=== PATIENT | female | born 1995 | race Two or more races ===

== ENCOUNTER 2018-01-30 15:03 | Observation (INO) | payer OTHER ==
[~2018-01-30] VITALS: Ht 160 cm; Wt 127.0 kg
[2018-01-30 16:31] LABS: Basophils # (auto) 0.1 uL; Basophils % (auto) 0.7 % (0.0-2.0); Eosinophils # (auto) 0.3 uL; Hematocrit 39.1 % (36.0-46.0); Hemoglobin 13.2 g/dL (12.2-16.2); Lymphocytes % (auto) 22.9 % (10.0-50.0); Mean Corpuscular Hemoglobin 28.8 pg (28.0-32.0); Mean Corpuscular Hgb Conc. 33.8 g/dL (32.0-36.0); Mean Corpuscular Volume 85.1 fL (80.0-100.0); Monocytes # (auto) 0.4 uL; Monocytes % (auto) 4.7 % (0.0-12.0); Neutrophils # (auto) 5.9 uL; Neutrophils % (auto) 68.7 % (37.0-80.0); Nucleated Red Blood Cells % 0.1 %; Platelet Count (auto) 289 10^3/uL (140-450); Red Cell Distribution Width 13.2 % (11.8-14.3); White Blood Cell 8.6 10^3/uL (4.4-10.8)
[2018-01-30 16:40] LABS: Alanine Aminotransferase 30 U/L (13-56); Albumin 3.4 g/dL (3.4-5.0); Alkaline Phosphatase 122 U/L (45-117); Anion Gap 7 (5-15); Aspartate Aminotransferase 17 U/L (15-37); Bilirubin, Total 0.3 mg/dL (0.2-1.0); Blood Urea Nitrogen 11 mg/dL (7-18); Calcium 8.3 mg/dL (8.5-10.1); Carbon Dioxide 25 mmol/L (21-32); Chloride 109 mmol/L (98-107); GFR African American 88 mL/min; GFR Non-African American 72 mL/min; Glucose 110 mg/dL (74-106); Potassium 3.8 mmol/L (3.5-5.1); Sodium 141 mmol/L (136-145); Total Protein 7.2 g/dL (6.4-8.2)
[2018-01-30 16:58] LABS: Urine Bacteria NONE SEEN /hpf (None Seen); Urine Blood Negative /uL (Negative); Urine Mucus FEW (None Seen); Urine Specific Gravity 1.026 (1.001-1.035); Urine WBC 3 /hpf (0 - 5)
[2018-01-30 17:00] LABS: Alcohol, Urine < 3.0 mg/dL (0-5); Amphetamine Screen, Urine NEGATIVE (NEGATIVE); Barbiturate Scree,Urine NEGATIVE (NEGATIVE); Benzodiazephine Screen, Urine NEGATIVE (NEGATIVE); Cannabinoid Screen, Urine NEGATIVE (NEGATIVE); Cocaine Screen, Urine NEGATIVE (NEGATIVE); Opiate Scree,Urine NEGATIVE (NEGATIVE); Phencyclidine Screen, Urine NEGATIVE (NEGATIVE)
[2018-01-30] MEDS ORDERED: ASPirin 81 mg TAB PO ONE (18:00)
[2018-01-30 18:35] LABS: INR 0.96 (0.9-1.15); Partial Thromboplastin Time 29.1 sec (23.78-33.04); Prothrombin Time 10.3 sec (9.27-12.13)
[2018-01-30 19:00] VITALS: BP 111/63
== END 2018-01-30 20:37 | disposition home or self-care (01) | DRG 203 ==
LOC: ER 15:05 → OVERFLOW 15:06 → ER 20:37
PROVIDERS: ADMIT Family Medicine; ATTEND Family Medicine
DX: R07.89 Other chest pain (principal); F41.9 Anxiety disorder, unspecified; K29.70 Gastritis, unspecified, without bleeding
CPT/HCPCS: 36415; 71046; 80053; 80307; 81001; 81025; 84443; 84484; 85025; 85379; 85610; 85730; 93005; G0378

== ENCOUNTER 2019-06-07 23:17 | Emergency (ER) | payer MEDICAID, OTHER ==
[~2019-06-07] VITALS: Ht 160 cm; Wt 132.9 kg
[2019-06-08 00:59] LABS: Basophils # (auto) 0.1 uL; Basophils % (auto) 0.5 % (0.0-2.0); Eosinophils # (auto) 0.4 uL; Eosinophils % (auto) 4.1 % (0.0-7.0); Hematocrit 39.7 % (36.0-46.0); Hemoglobin 13.9 g/dL (12.2-16.2); Lymphocytes # (auto) 3.2 uL; Lymphocytes % (auto) 29.1 % (10.0-50.0); Mean Corpuscular Hgb Conc. 35.1 g/dL (32.0-36.0); Mean Corpuscular Volume 85.6 fL (80.0-100.0); Monocytes # (auto) 0.5 uL; Neutrophils # (auto) 6.7 uL; Neutrophils % (auto) 61.3 % (37.0-80.0); Nucleated Red Blood Cells % 0.1 %; Platelet Count (auto) 293 10^3/uL (140-450); Red Blood Cells 4.65 10^6/uL (4.0-5.20); White Blood Cell 10.9 10^3/uL (4.4-10.8)
[2019-06-08 01:18] LABS: INR 1.03 (0.9-1.15); Partial Thromboplastin Time 29.7 sec (23.64-32.05)
[2019-06-08 01:30] LABS: Calcium 8.3 mg/dL (8.5-10.1); Chloride 108 mmol/L (98-107); Potassium 3.7 mmol/L (3.5-5.1); Sodium 138 mmol/L (136-145)
[2019-06-08 01:40] LABS: Alanine Aminotransferase 23 U/L (13-56); Albumin 3.4 g/dL (3.4-5.0); Alkaline Phosphatase 119 U/L (45-117); Anion Gap 6 (5-15); Aspartate Aminotransferase 13 U/L (15-37); BUN/Creatinine Ratio 9.6; Bilirubin, Total 0.2 mg/dL (0.2-1.0); Blood Urea Nitrogen 12 mg/dL (7-18); Carbon Dioxide 24 mmol/L (21-32); GFR African American 67 mL/min; GFR Non-African American 55 mL/min; Glucose 86 mg/dL (74-106); Magnesium 1.7 mg/dL (1.6-2.6); Total Protein 7.6 g/dL (6.4-8.2)
[2019-06-08 01:49] LABS: Urine Bacteria FEW /hpf (None Seen); Urine Blood Negative /uL (Negative); Urine Specific Gravity 1.018 (1.001-1.035); Urine WBC 26 /hpf (0 - 5)
[2019-06-08] MEDS ORDERED: cefTRIAXone W LIDOCAINE 1 GM IM IM ONE (07:30)
[2019-06-08] MEDS ORDERED: cefTRIAXone SOD 1,000 MG VL ONE (07:38)
[2019-06-08 08:21] VITALS: BP 132/76
== END 2019-06-08 08:23 | disposition home or self-care (01) ==
LOC: ER 23:17
DX: J40 Bronchitis, not specified as acute or chronic (principal); N39.0 Urinary tract infection, site not specified; D72.829 Elevated white blood cell count, unspecified
CPT/HCPCS: 36415; 80053; 81001; 81025; 83735; 83880; 84484; 85025; 85610; 85730; 93005; 96372; 99284; J0696

== ENCOUNTER 2020-04-13 20:35 | Inpatient (IN) | payer MEDICAID ==
[~2020-04-13] VITALS: Ht 160 cm; Wt 131.0 kg
[2020-04-13 22:42] LABS: Basophils # (auto) 0.1 10 ^3/uL (0-0.2); Basophils % (auto) 0.4 % (0.0-2.0); Eosinophils # (auto) 0.2 10 ^3/uL (0-0.8); Eosinophils % (auto) 1.1 % (0.0-7.0); Hematocrit 39.6 % (36.0-46.0); Hemoglobin 13.3 g/dL (12.2-16.2); Lymphocytes # (auto) 2.6 10 ^3/uL (0.4-5.4); Mean Corpuscular Hemoglobin 29.3 pg (28.0-32.0); Mean Corpuscular Hgb Conc. 33.5 g/dL (32.0-36.0); Mean Corpuscular Volume 87.4 fL (80.0-100.0); Monocytes # (auto) 0.6 10 ^3/uL (0-1.3); Monocytes % (auto) 3.8 % (0.0-12.0); Neutrophils # (auto) 11.9 10 ^3/uL (1.6-8.6); Neutrophils % (auto) 77.7 % (37.0-80.0); Nucleated Red Blood Cells % 0.1 %; Platelet Count (auto) 290 10^3/uL (140-450); Red Blood Cells 4.54 10^6/uL (4.0-5.20); Red Cell Distribution Width 13.4 % (11.8-14.3); White Blood Cell 15.3 10^3/uL (4.4-10.8)
[2020-04-13 22:46] LABS: Urine Bacteria FEW /hpf (None Seen); Urine Blood 2+ /uL (Negative); Urine Specific Gravity 1.013 (1.001-1.035); Urine WBC 4 /hpf (0 - 5)
[2020-04-13 23:07] LABS: Albumin 3.8 g/dL (3.4-5.0); BUN/Creatinine Ratio 7.7; Calcium 9.2 mg/dL (8.5-10.1); Potassium 4.5 mmol/L (3.5-5.1)
[2020-04-13 23:10] LABS: Bilirubin, Total 0.9 mg/dL (0.2-1.0); Total Protein 7.6 g/dL (6.4-8.2)
[2020-04-14] MEDS ORDERED: SODIUM CHLORIDE 0.9% 1,000 ML IV ONE (02:00)
[2020-04-14] MEDS ORDERED: ONDANSETRON HCL 4 MG/2 ML VIAL IV ONE (02:45)
[2020-04-14] MEDS ORDERED: MORPHINE SULF INJ 2 MG/ML SYRINGE 1ML IV ONE ×2 (02:45→05:15)
[2020-04-14] MEDS: LACTATED RINGER'S 1,000 ML IV SCH ×3 (02:49→18:08)
[2020-04-14 03:07] LABS: Hematocrit 42.7 % (36.0-46.0); Hemoglobin 14.3 g/dL (12.2-16.2)
[2020-04-14 07:34] LABS: INR 1.07 (0.9-1.15); Partial Thromboplastin Time 29.8 sec (23.0-31.2)
[2020-04-14] MEDS ORDERED: fentaNYL CITRATE 100 MCG/2 ML VL ONE (08:24)
[2020-04-14] MEDS ORDERED: MIDAZOLAM HCL 1MG/1ML-2 ML VIAL ONE (08:24)
[2020-04-14] MEDS ORDERED: MEPERIDINE HCL (50 MG/ML) 1 ML VIAL ONE (08:24)
[2020-04-14] MEDS ORDERED: GLYCOPYRROLATE 0.2 MG/ML 1ML VIAL ONE (08:25)
[2020-04-14] MEDS ORDERED: SODIUM CHLORIDE LOCK 10 ML ONE (08:25)
[2020-04-14] MEDS ORDERED: PROPOFOL 10 MG/ML 20 ML IV ONE (08:25)
[2020-04-14] MEDS ORDERED: NEOSTIGMINE 1 MG/ML INJ (10mg/10ML VIAL) ONE (08:25)
[2020-04-14] MEDS ORDERED: ROCURONIUM 10MG/ML 10ML VIAL IV ONE (08:25)
[2020-04-14] MEDS ORDERED: ONDANSETRON HCL 4 MG/2 ML VIAL ONE (08:25)
[2020-04-14] MEDS ORDERED: LIDOCAINE W/ EPINEPHRINE 1% 20ML VIAL ONE (08:29)
[2020-04-14] MEDS ORDERED: BUPIVACAINE 0.25% INJ 50ML VIAL ONE (08:29)
[2020-04-14] MEDS ORDERED: ceFAZolin 1GM/50ML 100 ML IV ONE (08:43)
[2020-04-14] MEDS ORDERED: fentaNYL CITRATE 5 ML ONE (08:51)
[2020-04-14] MEDS ORDERED: METOCLOPRAMIDE HCL 5MG/ml INJ 2ml VIAL IV PRN (09:00)
[2020-04-14] MEDS ORDERED: ACCU-CHEK COMFORT CURVE STRIP VI ONE (09:00)
[2020-04-14] MEDS ORDERED: HYDROmorphone HCL 2 MG/ML VL IV PRN (09:00)
[2020-04-14] MEDS ORDERED: MORPHINE SULFATE 4 MG/ML SYR/VIAL IV PRN (09:00)
[2020-04-14] MEDS ORDERED: ceFAZolin 1GM/50ML 50 ML IV ONE (10:30)
[2020-04-14] MEDS ORDERED: LACTATED RINGER'S 1,000 ML IV SCH (10:30)
[2020-04-14] MEDS: HYDROmorphone HCL 2 MG/ML VL IV PRN ×4 (12:00→18:27)
--- NOTE | 2020-04-14 15:23 | NUR ---
MS admit from PACU KIKA CRUZ admitted to tele/MS after SBAR received. Patient oriented to DEE martin RN, unit, room 207 and unit policies regarding patient care and visiting hours. Patient weighed by bed scale, placed on oxygen at 2L/ min via nasal cannula and encouraged to call if they need something, bed alarm on. All questions and concerns addressed, patient verbalized understanding.
[2020-04-14 15:43] VITALS: BP 136/77
[2020-04-14] MEDS ORDERED: METF-370 PO (15:57)
[2020-04-14] MEDS ORDERED: CHOL20002 PO (15:57)
[2020-04-14 16:44] VITALS: BP 136/77
--- NOTE | 2020-04-14 16:49 | NUR ---
REPORT GIVEN TO VIVIAN TORRES
[2020-04-14] MEDS: ONDANSETRON HCL 4 MG/2 ML VIAL IV PRN ×2 (18:27→22:12)
[2020-04-14 22:00] VITALS: BP 113/63
[2020-04-14] MEDS: KETOROLAC TROMETH 30 MG/ML 1ML VIAL IV PRN (22:12)
[2020-04-15] MEDS: HYDROmorphone HCL 2 MG/ML VL IV PRN (02:29)
[2020-04-15 05:14] VITALS: BP 117/54
[2020-04-15 05:30] LABS: Basophils # (auto) 0 10 ^3/uL (0-0.2); Basophils % (auto) 0.3 % (0.0-2.0); Eosinophils # (auto) 0.1 10 ^3/uL (0-0.8); Eosinophils % (auto) 0.9 % (0.0-7.0); Hematocrit 33.3 % (36.0-46.0); Hemoglobin 11.3 g/dL (12.2-16.2); Lymphocytes # (auto) 1.6 10 ^3/uL (0.4-5.4); Lymphocytes % (auto) 13.5 % (10.0-50.0); Mean Corpuscular Hemoglobin 29.9 pg (28.0-32.0); Mean Corpuscular Volume 87.8 fL (80.0-100.0); Monocytes # (auto) 0.6 10 ^3/uL (0-1.3); Neutrophils # (auto) 9.6 10 ^3/uL (1.6-8.6); Neutrophils % (auto) 80.3 % (37.0-80.0); Platelet Count (auto) 231 10^3/uL (140-450); Red Blood Cells 3.79 10^6/uL (4.0-5.20); Red Cell Distribution Width 13.5 % (11.8-14.3)
[2020-04-15] MEDS: LACTATED RINGER'S 1,000 ML IV SCH ×2 (06:24→10:55)
[2020-04-15] MEDS: KETOROLAC TROMETH 30 MG/ML 1ML VIAL IV PRN ×2 (08:34→23:22)
[2020-04-15 08:42] VITALS: BP 111/48
--- NOTE | 2020-04-15 11:09 | NUR ---
MACHADO CATHETER REMOVED
[2020-04-15] MEDS ORDERED: HYDROcodone-ACET 5/325MG TAB PO PRN (11:30)
[2020-04-15 12:52] VITALS: BP 126/67
[2020-04-15 17:00] VITALS: BP 116/64
[2020-04-15 20:00] VITALS: BP 112/84
[2020-04-15] MEDS: HYDROcodone-ACET 5/325MG TAB PO PRN (22:05)
[2020-04-16 05:00] VITALS: BP 135/68
[2020-04-16 09:00] VITALS: BP 151/76
[2020-04-16] MEDS: HYDROcodone-ACET 5/325MG TAB PO PRN (10:03)
--- NOTE | 2020-04-16 10:21 | NUR ---
DR WISEMAN ROUNDED, PT TO DISCHARGE HOME TODAY. PT C/O 01/30 ABD. PAIN. MEDICATED WITH NORCO ORDERED. AMBULATED TO BATHROOM, PRESENTLY SITTING UP IN CHAIR.
[2020-04-16] MEDS: ONDANSETRON HCL 4 MG/2 ML VIAL IV PRN (10:44)
--- NOTE | 2020-04-16 11:20 | NUR ---
PT STATED SHE HAD INTENSE ABDOMINAL PAIN AND NAUSEA. MEDICATED WITH NORCO AND ZOFRAN. NOTED PT TO BE SWEATING, CRYING WITH PAIN. BLOOD SUGAR 98. VSS. MONITORING CLOSELY. AT PRESENT, PT RESTING IN BED, STATES PAIN IS BETTER. CONTINUING TO MONITOR.
[2020-04-16 11:44] VITALS: BP 119/55
[2020-04-16 12:58] VITALS: BP 114/59
--- NOTE | 2020-04-16 13:17 | NUR ---
DISCHARGE INSTRUCTIONS GIVEN TO PT. VERBALIZED UNDERSTANDING. ALL APPROPRIATE PAPERWORK SIGNED. IV REMOVED. RX GIVEN TO PT. PT DISCHARGED HOME WITH FAMILY.
== END 2020-04-16 13:10 | disposition home or self-care (01) | DRG 545 ==
LOC: ER 20:37 → OVERFLOW 20:38 → CENTRAL 04-14 15:23
PROVIDERS: ADMIT Specialist; ATTEND Specialist
PROC: 0UT60ZZ Resection of Left Fallopian Tube, Open Approach (ICD-10-PCS; 2020-04-14)
PROC: 10T20ZZ Resection of Products of Conception, Ectopic, Open Approach (ICD-10-PCS; principal; 2020-04-14 08:55)
DX: O00.102 Left tubal pregnancy without intrauterine pregnancy (principal); K66.1 Hemoperitoneum; E11.9 Type 2 diabetes mellitus without complications; Z90.49 Acquired absence of other specified parts of digestive tract; E66.01 Morbid (severe) obesity due to excess calories; Z20.828 Contact with and (suspected) exposure to other viral communicable diseases; R71.0 Precipitous drop in hematocrit
CPT/HCPCS: 36415; 76801; 76817; 80053; 81001; 82962; 84702; 85014; 85018; 85025; 85610; 85730; 86850; 86900; 86901; 87426; G0378; J0690; J1885; J2250; J2405; J2704; J3490

== ENCOUNTER 2021-04-05 15:13 | Emergency (ER) | payer MEDICAID ==
[~2021-04-05] VITALS: Ht 160 cm; Wt 136.1 kg
[~2021-04-05 15:13] MED LIST: CHOL20002 PO; METF-370 PO
[2021-04-05 16:00] LABS: Basophils # (auto) 0.1 10 ^3/uL (0-0.2); Basophils % (auto) 0.4 % (0.0-2.0); Eosinophils # (auto) 0.2 10 ^3/uL (0-0.8); Eosinophils % (auto) 1.6 % (0.0-7.0); Hematocrit 42.4 % (36.0-46.0); Hemoglobin 14.4 g/dL (12.2-16.2); Lymphocytes # (auto) 1.6 10 ^3/uL (0.4-5.4); Lymphocytes % (auto) 10.8 % (10.0-50.0); Mean Corpuscular Hemoglobin 29.3 pg (28.0-32.0); Monocytes # (auto) 0.5 10 ^3/uL (0-1.3); Monocytes % (auto) 3.2 % (0.0-12.0); Neutrophils # (auto) 12.7 10 ^3/uL (1.6-8.6); Nucleated Red Blood Cells % 0.1 %; Red Blood Cells 4.92 10^6/uL (4.0-5.20); Red Cell Distribution Width 13.3 % (11.8-14.3); White Blood Cell 15.1 10^3/uL (4.4-10.8)
[2021-04-05 16:18] LABS: Albumin 3.8 g/dL (3.4-5.0); BUN/Creatinine Ratio 10.5; Calcium 9.2 mg/dL (8.5-10.1); Potassium 3.9 mmol/L (3.5-5.1)
[2021-04-05 16:21] LABS: Total Protein 7.6 g/dL (6.4-8.2)
[2021-04-05] MEDS ORDERED: ONDANSETRON HCL 4 MG/2 ML VIAL IV ONE ×2 (19:15→20:45)
[2021-04-05] MEDS ORDERED: NITROFURANTOIN 100 mg CAP PO ONE (19:15)
[2021-04-05] MEDS ORDERED: SODIUM CHLORIDE 0.9% 1,000 ML IV ONE (19:15)
[2021-04-05] MEDS ORDERED: PYRIDOXINE HCL 50 MG TAB PO ONE (20:45)
[2021-04-05] MEDS ORDERED: AMOXICILLIN/CLAVUL 875 MG TAB PO ONE (20:45)
[2021-04-05 22:44] VITALS: BP 132/78
== END 2021-04-05 22:51 | disposition home or self-care (01) ==
LOC: ER 15:13
DX: O21.8 Other vomiting complicating pregnancy (principal); Z90.49 Acquired absence of other specified parts of digestive tract; Z79.899 Other long term (current) drug therapy; Z3A.01 Less than 8 weeks gestation of pregnancy
CPT/HCPCS: 36415; 76801; 80053; 83690; 84702; 85025; 96361; 96374; 99284; J2405; J7030

== ENCOUNTER 2021-08-24 09:23 | Inpatient (IN) | payer MEDICAID ==
[~2021-08-24] VITALS: Ht 160 cm; Wt 144.1 kg
[2021-08-24 10:26] LABS: Basophils # (auto) 0.1 10 ^3/uL (0-0.2); Basophils % (auto) 0.5 % (0.0-2.0); Eosinophils # (auto) 0 10 ^3/uL (0-0.8); Eosinophils % (auto) 0.1 % (0.0-7.0); Hematocrit 37.4 % (36.0-46.0); Hemoglobin 13.1 g/dL (12.2-16.2); Lymphocytes # (auto) 0.6 10 ^3/uL (0.4-5.4); Lymphocytes % (auto) 5.2 % (10.0-50.0); Mean Corpuscular Hemoglobin 30.6 pg (28.0-32.0); Mean Corpuscular Volume 87.4 fL (80.0-100.0); Monocytes # (auto) 0.7 10 ^3/uL (0-1.3); Monocytes % (auto) 5.9 % (0.0-12.0); Neutrophils # (auto) 10.6 10 ^3/uL (1.6-8.6); Neutrophils % (auto) 88.3 % (37.0-80.0); Red Blood Cells 4.28 10^6/uL (4.0-5.20); Red Cell Distribution Width 13.4 % (11.8-14.3); White Blood Cell 12.1 10^3/uL (4.4-10.8)
[2021-08-24 11:01] LABS: Urine Bacteria FEW /hpf (None Seen); Urine Blood Negative /uL (Negative); Urine Mucus FEW (None Seen); Urine Specific Gravity 1.016 (1.001-1.035); Urine WBC 8 /hpf (0 - 5)
[2021-08-24 11:03] LABS: Albumin 2.8 g/dL (3.4-5.0); Calcium 8.7 mg/dL (8.5-10.1); Magnesium 1.9 mg/dL (1.6-2.6); Potassium 3.6 mmol/L (3.5-5.1)
[2021-08-24 11:07] LABS: BUN/Creatinine Ratio 5.6; Bilirubin, Total 0.8 mg/dL (0.2-1.0); Total Protein 6.9 g/dL (6.4-8.2)
[2021-08-24] MEDS ORDERED: IPRATROPIUM BROM 0.5 MG/2.5ML INH SOL NEB ONE ×3 (11:15→17:15)
[2021-08-24] MEDS ORDERED: ALBUTEROL SULF 2.5 MG/0.5ML(0.5%) NEB SOLN NEB ONE ×3 (11:15→17:15)
[2021-08-24] MEDS ORDERED: methylPREDNISolone SOD SUCC 125 MG/2 ML VL IV ONE (15:30)
[2021-08-24] MEDS ORDERED: cefTRIAXone 1GM/50ML D5W 50 ML IV ONE (17:15)
[2021-08-25] MEDS ORDERED: ONDANSETRON HCL 4 MG/2 ML VIAL IV PRN (10:30)
[2021-08-25] MEDS: ALBUTEROL SULF 2.5 MG/0.5ML(0.5%) NEB SOLN NEB PRN ×2 (10:57→16:15)
[2021-08-25 11:22] VITALS: BP 116/74
[2021-08-25 11:31] VITALS: BP 130/80
[2021-08-25 11:33] LABS: Cholesterol 188 mg/dL (< 200)
[2021-08-25 11:35] LABS: HDL Cholesterol 54 mg/dL (40-59); LDL Cholesterol 111 mg/dL (< 100); Triglycerides 113 mg/dL (< 150)
[2021-08-25 12:54] VITALS: BP 132/80
[2021-08-25 16:34] VITALS: BP 134/80
[2021-08-25] MEDS ORDERED: PREN-125 PO (17:54)
[2021-08-25] MEDS ORDERED: FLU220IH PO (17:56)
[2021-08-25] MEDS ORDERED: ALBU108A5 INH (17:56)
[2021-08-25 21:54] VITALS: BP 128/81
[2021-08-26] MEDS: ALBUTEROL SULF 2.5 MG/0.5ML(0.5%) NEB SOLN NEB PRN (04:47)
[2021-08-26 05:00] VITALS: BP 136/77
[2021-08-26 07:06] LABS: Albumin 2.7 g/dL (3.4-5.0); BUN/Creatinine Ratio 11.1; Calcium 8.5 mg/dL (8.5-10.1)
[2021-08-26 07:09] LABS: Bilirubin, Total 0.2 mg/dL (0.2-1.0); Total Protein 6.4 g/dL (6.4-8.2)
[2021-08-26 07:10] LABS: Basophils # (auto) 0 10 ^3/uL (0-0.2); Basophils % (auto) 0.4 % (0.0-2.0); Eosinophils # (auto) 0.2 10 ^3/uL (0-0.8); Eosinophils % (auto) 2.1 % (0.0-7.0); Hematocrit 36.1 % (36.0-46.0); Hemoglobin 12.8 g/dL (12.2-16.2); Lymphocytes # (auto) 1.7 10 ^3/uL (0.4-5.4); Lymphocytes % (auto) 16.7 % (10.0-50.0); Mean Corpuscular Hemoglobin 31.2 pg (28.0-32.0); Mean Corpuscular Hgb Conc. 35.4 g/dL (32.0-36.0); Mean Corpuscular Volume 88.2 fL (80.0-100.0); Monocytes # (auto) 0.6 10 ^3/uL (0-1.3); Monocytes % (auto) 5.8 % (0.0-12.0); Neutrophils # (auto) 7.6 10 ^3/uL (1.6-8.6); Nucleated Red Blood Cells % 0.1 %; Red Blood Cells 4.09 10^6/uL (4.0-5.20); Red Cell Distribution Width 13.4 % (11.8-14.3); White Blood Cell 10.2 10^3/uL (4.4-10.8)
[2021-08-26 09:00] VITALS: BP 119/73
[2021-08-26] MEDS ORDERED: predniSONE 20 MG TAB PO STA (10:37)
[2021-08-26] MEDS ORDERED: cefTRIAXone 1GM/50ML D5W 50 ML IV ONE (12:00)
[2021-08-26 13:00] VITALS: BP 117/73
[2021-08-26] MEDS ORDERED: AZITHROMYCIN 500MG/ 250ML 250 ML IV ONE (13:00)
[2021-08-26 17:00] VITALS: BP 131/80
[2021-08-26 22:00] VITALS: BP 142/78
[2021-08-27 05:00] VITALS: BP 134/77
[2021-08-27 08:51] VITALS: BP 113/61
[2021-08-27] MEDS ORDERED: cefTRIAXone 1GM/50ML D5W 50 ML IV SCH (09:00)
[2021-08-27] MEDS ORDERED: AZIT500T66 PO (09:23)
[2021-08-27] MEDS ORDERED: PRED20TA2 PO (09:23)
[2021-08-27] MEDS ORDERED: AZITHROMYCIN 500MG/ 250ML 250 ML IV SCH (10:00)
[2021-08-27] MEDS ORDERED: predniSONE 20 MG TAB PO SCH (10:00)
[2021-08-27 13:00] VITALS: BP 104/69
[2021-08-27 14:33] VITALS: BP 104/69
== END 2021-08-27 15:28 | disposition home or self-care (01) | DRG 566 ==
LOC: ER 09:23 → OVERFLOW 08-25 10:26 → EAST 08-25 12:01
PROVIDERS: ADMIT Registered Nurse; ATTEND Family Medicine
DX: O99.512 Diseases of the respiratory system complicating pregnancy, second trimester (principal); J96.01 Acute respiratory failure with hypoxia; J45.901 Unspecified asthma with (acute) exacerbation; O12.12 Gestational proteinuria, second trimester; Z20.822 Contact with and (suspected) exposure to COVID-19; O99.212 Obesity complicating pregnancy, second trimester; R79.89 Other specified abnormal findings of blood chemistry; Z90.49 Acquired absence of other specified parts of digestive tract; Z87.442 Personal history of urinary calculi; Z86.16 Personal history of COVID-19; Z3A.27 27 weeks gestation of pregnancy
CPT/HCPCS: 36415; 71045; 80053; 80061; 81001; 83036; 83735; 85025; 85379; 93005; 93970; 94640; 96365; 96375; G0378; J0696

== ENCOUNTER 2021-11-16 13:05 | Observation (INO) | payer MEDICAID ==
[~2021-11-16 13:05] MED LIST changes: +ALBU108A5 INH; +AZIT500T66 PO; -CHOL20002 PO; +FLU220IH PO; -METF-370 PO; +PRED20TA2 PO; +PREN-125 PO
[2021-11-16] MEDS ORDERED: OMEP20TA PO (14:56)
== END 2021-11-16 15:13 | disposition home or self-care (01) ==
LOC: UNDOADMOB 13:05 → LDRP 13:05
PROVIDERS: ADMIT Obstetrics & Gynecology; ATTEND Obstetrics & Gynecology
DX: O48.0 Post-term pregnancy (principal); O99.323 Drug use complicating pregnancy, third trimester; F12.90 Cannabis use, unspecified, uncomplicated; Z3A.40 40 weeks gestation of pregnancy
CPT/HCPCS: 59025; 76818; 81002; 94760; G0378

== ENCOUNTER 2021-11-18 07:49 | Inpatient (IN) | payer MEDICAID ==
[~2021-11-18] VITALS: Ht 160 cm; Wt 145.6 kg
[~2021-11-18 07:49] MED LIST changes: +OMEP20TA PO
[2021-11-18] MEDS ORDERED: BUTORPHANOL TARTRATE 2 MG/1 ML VIAL IV PRN ×2 (13:15)
[2021-11-18] MEDS ORDERED: WITCH HAZEL-GLYCERIN PAD TOP PRN (13:15)
[2021-11-18] MEDS ORDERED: PHISODERM TOP SOLN 240ML BTL TOP PRN (13:15)
[2021-11-18] MEDS ORDERED: DERMOPLAST 60ML BOTTLE TOP PRN (13:15)
[2021-11-18] MEDS ORDERED: LIDOCAINE 2%HCL (LOCAL ANESTH.) INJ 10ml MDV IJ PRN (13:15)
[2021-11-18] MEDS ORDERED: PROMETHAZINE HCL 25 MG/ML 1ML IV PRN (13:15)
[2021-11-18] MEDS: LACTATED RINGER'S 1,000 ML IV SCH ×2 (13:34→20:31)
[2021-11-18 14:03] LABS: Basophils # (auto) 0 10 ^3/uL (0-0.2); Basophils % (auto) 0.3 % (0.0-2.0); Eosinophils # (auto) 0.1 10 ^3/uL (0-0.8); Eosinophils % (auto) 0.9 % (0.0-7.0); Hematocrit 37.9 % (36.0-46.0); Hemoglobin 12.6 g/dL (12.2-16.2); Lymphocytes # (auto) 1.7 10 ^3/uL (0.4-5.4); Lymphocytes % (auto) 14.8 % (10.0-50.0); Mean Corpuscular Hgb Conc. 33.2 g/dL (32.0-36.0); Mean Corpuscular Volume 90.2 fL (80.0-100.0); Monocytes # (auto) 0.7 10 ^3/uL (0-1.3); Monocytes % (auto) 5.9 % (0.0-12.0); Neutrophils # (auto) 8.9 10 ^3/uL (1.6-8.6); Neutrophils % (auto) 78.1 % (37.0-80.0); White Blood Cell 11.3 10^3/uL (4.4-10.8)
[2021-11-18 14:07] LABS: BUN/Creatinine Ratio 10.8; Calcium 8.7 mg/dL (8.5-10.1)
[2021-11-18 14:09] LABS: Bilirubin, Total 0.5 mg/dL (0.2-1.0); Total Protein 6.9 g/dL (6.4-8.2)
[2021-11-18 14:29] LABS: INR 0.92 (0.9-1.15); Partial Thromboplastin Time 27.2 sec (24.6-33.4)
[2021-11-18] MEDS: miSOPROStol 50 MCG per PRE-CUT 1/2 TAB PO PRN ×2 (14:46→19:43)
[2021-11-18 14:49] LABS: Urine Bacteria MANY /hpf (None Seen); Urine Blood Negative /uL (Negative); Urine Mucus FEW (None Seen); Urine WBC 118 /hpf (0 - 5)
[2021-11-18 14:54] LABS: Alcohol, Urine < 3.0 mg/dL (0-10); Amphetamine Screen, Urine NEGATIVE (NEGATIVE); Barbiturate Scree,Urine NEGATIVE (NEGATIVE); Benzodiazephine Screen, Urine NEGATIVE (NEGATIVE); Cannabinoid Screen, Urine NEGATIVE (NEGATIVE); Cocaine Screen, Urine NEGATIVE (NEGATIVE); Opiate Scree,Urine NEGATIVE (NEGATIVE); Phencyclidine Screen, Urine NEGATIVE (NEGATIVE)
[2021-11-18] MEDS ORDERED: LACTATED RINGER'S 1,000 ML IV ONE (22:30)
[2021-11-18] MEDS ORDERED: NALOXONE HCL 0.4 MG/ML VIAL IV ONE (22:30)
[2021-11-18] MEDS ORDERED: ROPIVACAINE HCL 200 ML EPI SCH (22:30)
[2021-11-18] MEDS ORDERED: ePHEDrine SULFATE 50 MG/ML AMP IV ONE (22:30)
[2021-11-19] MEDS ORDERED: SODIUM CHLORIDE 0.9% 1,000 ML IV ONE
[2021-11-19] MEDS: LACTATED RINGER'S 1,000 ML IV SCH (01:09)
[2021-11-19] MEDS ORDERED: miSOPROStol 100 mcg TAB PR PRN (02:30)
[2021-11-19] MEDS ORDERED: NS/OXYTOCIN 20UNITS 1,000 ML IV ONE (02:30)
[2021-11-19] MEDS ORDERED: METHYLERGONOVINE MALEATE 0.2 MG/ML AMP IM PRN (02:30)
[2021-11-19] MEDS ORDERED: miSOPROStol 100 mcg TAB SL PRN (02:30)
[2021-11-19] MEDS ORDERED: NS/OXYTOCIN 20UNITS 500 ML IV ONE (03:00)
[2021-11-19] MEDS: NS/OXYTOCIN 20UNITS 500 ML IV ONE ×2 (03:30→05:33)
[2021-11-19] MEDS ORDERED: LACTATED RINGER'S 1,000 ML IV ONE (05:30)
[2021-11-19 07:00] VITALS: BP 133/60
[2021-11-19] MEDS ORDERED: ONDANSETRON ODT 4 MG TAB PO PRN (07:00)
[2021-11-19 07:06] LABS: RPR Non Reactive (Non Reactive)
[2021-11-19 11:00] VITALS: BP 130/88
[2021-11-19] MEDS: IBUPROFEN 600 MG TAB PO PRN ×2 (12:58→20:35)
[2021-11-19 15:00] VITALS: BP 116/68
[2021-11-19 19:00] VITALS: BP 130/92
[2021-11-19 23:00] VITALS: BP 113/65
[2021-11-20 03:00] VITALS: BP 128/60
[2021-11-20 06:40] VITALS: BP 127/80
[2021-11-20] MEDS: IBUPROFEN 600 MG TAB PO PRN ×2 (07:31→22:49)
[2021-11-20 11:00] VITALS: BP 122/78
[2021-11-20 15:00] VITALS: BP 115/66
[2021-11-20 19:00] VITALS: BP 118/76
[2021-11-20] MEDS: ACETAMINOPHEN 325 MG TAB PO PRN ×2 (19:17→23:59)
[2021-11-20 22:30] VITALS: BP 131/67
== END 2021-11-20 23:55 | disposition home or self-care (01) | DRG 560 ==
LOC: LDRP 12:54 → OBSVTOIN 12:55 → LDRP 11-19 17:45
PROVIDERS: ADMIT Obstetrics & Gynecology; ATTEND Obstetrics & Gynecology
PROC: 3E0P7VZ Introduction of Hormone into Female Reproductive, Via Natural or Artificial Opening (ICD-10-PCS; 2021-11-18)
PROC: 3E0DXGC Introduction of Other Therapeutic Substance into Mouth and Pharynx, External Approach (ICD-10-PCS; 2021-11-18)
PROC: 10E0XZZ Delivery of Products of Conception, External Approach (ICD-10-PCS; principal; 2021-11-19)
PROC: 0HQ9XZZ Repair Perineum Skin, External Approach (ICD-10-PCS; 2021-11-19)
PROC: 3E0R3BZ Introduction of Anesthetic Agent into Spinal Canal, Percutaneous Approach (ICD-10-PCS; 2021-11-19)
PROC: 00HU33Z Insertion of Infusion Device into Spinal Canal, Percutaneous Approach (ICD-10-PCS; 2021-11-19)
DX: O48.0 Post-term pregnancy (principal); Z37.0 Single live birth; O70.0 First degree perineal laceration during delivery; Z20.822 Contact with and (suspected) exposure to COVID-19; Z3A.40 40 weeks gestation of pregnancy
CPT/HCPCS: 36415; 59025; 59409; 62282; 80053; 80307; 81001; 81002; 85025; 85610; 85730; 86592; 86850; 86900; 86901; 94760; 96360; 96361; 96365; 96366; 96372; G0378; J2001

== ENCOUNTER 2022-06-07 10:37 | Emergency (ER) | payer MEDICAID, OTHER ==
[~2022-06-07] VITALS: Ht 160 cm; Wt 142.5 kg
[2022-06-07 11:22] VITALS: BP 140/77
[2022-06-07] MEDS ORDERED: METH750T22 PO (12:19)
[2022-06-07] MEDS ORDERED: IBUP800T27 PO (12:19)
== END 2022-06-07 12:28 | disposition home or self-care (01) ==
LOC: ER 10:37
DX: S29.012A Strain of muscle and tendon of back wall of thorax, initial encounter (principal); S20.212A Contusion of left front wall of thorax, initial encounter; F12.10 Cannabis abuse, uncomplicated; J45.909 Unspecified asthma, uncomplicated; Z90.49 Acquired absence of other specified parts of digestive tract; V43.52XA Car driver injured in collision with other type car in traffic accident, initial encounter; Y93.89 Activity, other specified; Y92.89 Other specified places as the place of occurrence of the external cause; Y99.8 Other external cause status
CPT/HCPCS: 71046; 72070

== ENCOUNTER 2023-08-20 09:52 | Emergency (ER) | payer MEDICAID, OTHER ==
[~2023-08-20] VITALS: Ht 160 cm; Wt 145.0 kg
[~2023-08-20 09:52] MED LIST changes: +IBUP-1456 PO; +METH-1182 PO
[2023-08-20] MEDS: IPRATROPIUM BROM 0.5 MG/2.5ML INH SOL NEB ONE (10:14)
[2023-08-20] MEDS: ALBUTEROL SULF 2.5 MG/0.5ML(0.5%) NEB SOLN NEB ONE (10:14)
[2023-08-20 10:15] VITALS: BP 145/119; PULSE 120
[2023-08-20 10:56] LABS: Basophils # (auto) 0.1 10 ^3/uL (0-0.2); Basophils % (auto) 0.8 % (0.0-2.0); Eosinophils # (auto) 0.7 10 ^3/uL (0-0.8); Eosinophils % (auto) 7.5 % (0.0-7.0); Hematocrit 39.4 % (36.0-46.0); Hemoglobin 13.7 g/dL (12.2-16.2); Lymphocytes # (auto) 2.8 10 ^3/uL (0.4-5.4); Lymphocytes % (auto) 28.8 % (10.0-50.0); Mean Corpuscular Hemoglobin 29.9 pg (28.0-32.0); Mean Corpuscular Hgb Conc. 34.7 g/dL (32.0-36.0); Monocytes # (auto) 0.5 10 ^3/uL (0-1.3); Monocytes % (auto) 4.7 % (0.0-12.0); Neutrophils # (auto) 5.7 10 ^3/uL (1.6-8.6); Neutrophils % (auto) 58.2 % (37.0-80.0); Nucleated Red Blood Cells % 0.2 %; Red Blood Cells 4.58 10^6/uL (4.0-5.20); Red Cell Distribution Width 12.5 % (11.8-14.3); White Blood Cell 9.8 10^3/uL (4.4-10.8)
[2023-08-20] MEDS: methylPREDNISolone SOD SUCC 125 MG/2 ML VL IV ONE (11:14)
[2023-08-20 11:19] VITALS: RESP 20; O2SAT 100
[2023-08-20] MEDS: IPRATROPIUM BROM 0.5 MG/2.5ML INH SOL HHN ONE (11:19)
[2023-08-20] MEDS: ALBUTEROL SULF 2.5 MG/0.5ML(0.5%) NEB SOLN HHN ONE (11:20)
[2023-08-20 11:56] LABS: Alanine Aminotransferase 19 U/L (7-40); Albumin 4.4 g/dL (3.2-4.8); Alkaline Phosphatase 110 U/L (46-116); Anion Gap 6 (5-15); Aspartate Aminotransferase 9 U/L (13-40); BUN/Creatinine Ratio 7.5 (10.0-20.0); Bilirubin, Total 0.6 mg/dL (0.2-1.0); Blood Urea Nitrogen 8 mg/dL (9-23); Calcium 9.9 mg/dL (8.5-10.1); Carbon Dioxide 27 mmol/L (20-30); Chloride 108 mmol/L (98-107); Glucose 105 mg/dL (74-106); Potassium 4.7 mmol/L (3.5-5.1); Sodium 141 mmol/L (136-145); Total Protein 7.4 g/dL (5.7-8.2)
[2023-08-20 12:33] LABS: Lactic Acid w/Reflex 2.2 mmol/L (0.4-2.0)
[2023-08-20 13:12] LABS: Base Excess -2.8 mmol/L (-2.0-2.0)
[2023-08-20] MEDS ORDERED: MAGNESIUM SULFATE 1GM/100ML 100 ML IV SCH (13:15)
[2023-08-20] MEDS ORDERED: PRED20TA2 PO (15:47)
[2023-08-20] MEDS: LEVALBUTEROL HCL 1.25 MG/3 ML NEB NEB SCH (18:00)
== END 2023-08-20 16:37 | disposition left against medical advice (07) ==
LOC: ER 09:52
DX: J45.901 Unspecified asthma with (acute) exacerbation (principal); F12.10 Cannabis abuse, uncomplicated; Z90.49 Acquired absence of other specified parts of digestive tract; Z79.899 Other long term (current) drug therapy
CPT/HCPCS: 36415; 36600; 71045; 80053; 82805; 83605; 83735; 85025; 87040; 87077; 87186; 94644; 96374; 99285; J2930; J7644

== ENCOUNTER 2023-09-26 22:52 | Emergency (ER) | payer MEDICAID ==
[~2023-09-26] VITALS: Ht 160 cm; Wt 144.5 kg
[2023-09-27] MEDS: IPRATROPIUM BROM 0.5 MG/2.5ML INH SOL NEB ONE (00:44)
[2023-09-27] MEDS: ALBUTEROL SULF 2.5 MG/0.5ML(0.5%) NEB SOLN NEB ONE ×2 (00:45→04:56)
[2023-09-27 04:24] VITALS: BP 137/95; PULSE 82; TEMP 97.7
[2023-09-27] MEDS: methylPREDNISolone SOD SUCC 125 MG/2 ML VL IM ONE (04:53)
[2023-09-27 04:56] VITALS: RESP 18
[2023-09-27 05:29] VITALS: O2SAT 96
[2023-09-27] MEDS ORDERED: PRED20TA2 PO (05:31)
[2023-09-27] MEDS ORDERED: ALBUAER3 IN (05:31)
[2023-09-27] MEDS ORDERED: AZIT-43 PO (05:31)
== END 2023-09-27 05:45 | disposition home or self-care (01) ==
LOC: ER 22:52
DX: J45.909 Unspecified asthma, uncomplicated (principal); E66.01 Morbid (severe) obesity due to excess calories; F12.10 Cannabis abuse, uncomplicated; F41.9 Anxiety disorder, unspecified; Z90.49 Acquired absence of other specified parts of digestive tract; Z68.43 Body mass index [BMI] 50.0-59.9, adult
CPT/HCPCS: 94640; 96372; 99285; J2919; J7644

== ENCOUNTER 2024-06-26 09:14 | Emergency (ER) | payer MEDICAID ==
[~2024-06-26] VITALS: Ht 160 cm; Wt 138.2 kg
[~2024-06-26 09:14] MED LIST changes: +ALBUAER3 IN; +AZIT-43 PO
[2024-06-26] MEDS: LIDOCAINE VISCOUS 2% 15ML UD PO ONE (09:34)
[2024-06-26] MEDS: MAALOX PLUS or MAALOX 30 ML PO ONE (09:34)
[2024-06-26] MEDS: DONNATAL 5ml ORAL Elix (BELLADONNA ALK-PHENOBARB) PO ONE (09:35)
--- NOTE | 2024-06-26 09:35 | ED.PDOC ---
GI ASSESSMENT HPI Comments 29 y/o F, with PMHX of stomach ulcers and asthma presents to the ED for CC of abdominal pain. Patient states, she has been experiencing epigastric abdominal pain with associated symptoms of nausea and vomiting x4days. Patient relays, that she has been having loose stools that are orange/red in appearance. Patient comments on, pain worsening with consumption of food. Patient consumes edibles (marijuana), denies ETOH or illicit drug usage. Patient denies melena, blood streaked bowels, fever, chills, body-aches, or hematemesis. No other associated symptoms, modifiers, recent injuries or sick contacts at this time. Chief Complaint: Abdominal Pain Time Seen by MD: 09:20 Primary Care Provider: UNKNOWN Reviewed Notes: Nurses Notes, Medications, Allergies Allergies: Coded Allergies: NO KNOWN ALLERGIES (Unverified , 02/20/15) Home Meds Active Scripts Albuterol Sulfate (VENTOLIN MDI) 90 Mcg Ih, 2 PUFF IN Q4HPRN, #1 INH 0 Refills Prov:NEIL BENSON 09/27/23 Azithromycin (Azithromycin) 250 Mg Tab, 250 MG PO DAILY MDD 500 for 5 Days, #6 TAB 0 Refills 2 TABLETS ORALLY ON DAY ONE, THEN 1 TABLET ORALLY DAILY FOR 4 DAYS Prov:NEIL BENSON 09/27/23 Prednisone (Prednisone) 20 Mg Tab, 20 MG PO BID for 5 Days, #10 TAB 0 Refills Prov:NEIL BENSON 09/27/23 Prednisone (Prednisone) 20 Mg Tab, 60 MG PO DAILY, #15 TAB Prov:RUMA ABRAHAM MD 08/20/23 Methocarbamol (Methocarbamol) 750 Mg Tab, 750 MG PO QHSP PRN, #20 TAB Prov:AJ TRAMMELL 06/07/22 Ibuprofen (Ibuprofen) 800 Mg Tab, 1 TAB PO TID, #30 TAB Prov:AJ TRAMMELL 06/07/22 Prednisone (Prednisone) 20 Mg Tab, 20 MG PO BID, #14 MG Prov:MARLY MARTINEZ MD 08/27/21 Azithromycin (Azithromycin) 500 Mg Tab, 1 TAB PO DAILY for 7 Days, #7 TAB Prov:MARLY MARTINEZ MD 08/27/21 Reported Medications Omeprazole (Gnp Omeprazole) 20 Mg Tab, 20 MG PO, TAB 11/16/21 Albuterol Sulfate (Albuterol Sulfate Hfa) 108 Mcg/Act Aer, INH 08/25/21 Fluticasone Propionate (FLOVENT HFA 220Mcg INH) 220 Mcg Ih, 2 PUFF PO BID 08/25/21 Vitamins W/ Ferrous S (CLINICAL NUTRIENTS PRENAT) Tab, 1 PO DAILY, TAB 08/25/21 Information Source: Patient Mode of Arrival: Ambulatory Timing: Days Duration: Since onset Prehospital treatment: Pain Meds Quality: None Vomitus: Watery Stool: Loose Severity: Moderate Recent: None Recent Hx of: None Pain Location: Epigastric Modifying Factors: Food; Exertion, Position, Movement, Antacids, Lying still, Nothing Associated sign and symptoms: Nausea, Vomiting, Abdominal Pain Past Medical History PAST MEDICAL HISTORY: Anxiety, Asthma, Gallstones Surgical History: Cholecystectomy CIRCUS RIDER History: No Pertinent CIRCUS RIDER History Family History Family History: Unknown Social History Smoker: Non-Smoker Alcohol: Denies ETOH Use Drugs: Marijuana Lives In: Home Constitutional: denies: chills, diaphoresis, fatigue, fever, malaise, sweats, weakness, others EENTM: denies: blurred vision, double vision, ear bleeding, ear discharge, ear drainage, ear pain, ear ringing, eye pain, eye redness, hearing loss, mouth pain, mouth swelling, nasal discharge, nose bleeding, nose congestion, nose pain, photophobia, tearing, throat pain, throat swelling, voice changes, others Respiratory: denies: cough, hemoptysis, orthopnea, SOB at rest, shortness of breath, SOB with excertion, stridor, wheezing, others Cardiovascular: denies: chest pain, dizzy spells, diaphoresis, Dyspnea on exertion, edema, irregular heart beat, left arm pain, lightheadedness, palpitations, PND, syncope, others Gastrointestinal: reports: abdominal pain, nausea, vomiting; denies: abdomen distended, blood streaked bowels, constipated, diarrhea, dysphagia, difficulty swallowing, hematemesis, melena, poor appetite, poor fluid intake, rectal bleeding, rectal pain, others Genitourinary: denies: abnormal vagina bleeding, burning, dyspareunia, dysuria, flank pain, frequency, hematuria, incontinence, pain, , vagina discharge, urgency, others Neurological: denies: dizziness, fainting, headache, left sided numbness, left sided weakness, numbness, paresthesia, pre-existing deficit, right sided numbness, right sided weakness, seizure, speech problems, tingling, tremors, weakness, others Musculoskeletal: denies: back pain, gout, joint pain, joint swelling, muscle pain, muscle stiffness, neck pain, others Integumetry: denies: bruises, change in color, change in hair/nails, dryness, laceration, lesions, lumps, rash, wounds, others Allergic/Immunocompromised: denies: Difficulty Healing, Frequent Infections, Hives, Itching, others Hematologic/Lymphatic: denies: anemia, blood clots, easy bleeding, easy bruising, swollen glands, others Endocrine: denies: excessive hunger, excessive sweating, excessive thirst, excessive urination, flushing, intolerance to cold, intolerance to heat, unexplained weight gain, unexplained weight loss, others Psychiatric: denies: anxiety, bipolar disorder, depression, hopeless, panic disorder, schizophrenia, sleepless, suicidal, others All Other Systems: Reviewed and Negative Physical Exam General Appearance: Moderate Distress HEENT: Normal ENT Inspection, Pharynx Normal, TMs Normal Neck: Full Range of Motion, Non-Tender, Normal, Normal Inspection Respiratory: Chest Non-Tender, Lungs Clear, No Accessory Muscle Use, No Respiratory Distress, Normal Breath Sounds Cardiovascular: No Edema, No JVD, No Murmur, No Gallop, Normal Peripheral Pulse s, Regular Rate/Rhythm Breast Exam: Deferred Gastrointestinal: No Organomegaly, Non Tender, No Pulsatile Mass, Normal Bowel Sounds, Soft Genitalia: Deferred Pelvic: Deferred Rectal: Deferred Extremities: No calf tenderness, Normal capillary refill, Normal inspection, Normal range of motion, Non-tender, No pedal edema Musculoskeletal : Apperance: Normal Neurologic: Alert, district medical examiner II-XII nml as Tested, No Motor Deficits, Normal Affect, Normal Mood, No Sensory Deficits Cerebellar Function: Normal Reflexes: Normal Skin: Dry, Normal Color, Warm Peripheral Pulses: 3+ Radial (R), 3+ Radial (L) Lymphatic: No Adenopathy Was a procedure done? Was a procedure done?: No GI differential Dx Differential Diagnosis: Constipation, Diverticular disease, Esophagitis, Gastritis/PUD, Gastroenteritis, Electrolyte Imbalance, Food Poisoning, Bacterial, Viral X-Ray, Labs, Meds, VS Vital Signs Date Time Temp Pulse Resp B/P (MAP) Pulse Ox O2 Delivery O2 Flow Rate FiO2 06/26/24 09:47 98.0 87 20 147/93 (111) 95 98.0 06/26/24 09:45 87 16 95 Room Air* 0 21 06/26/24 09:27 97.7 79 18 165/94 (117) 94 Lab Test 06/26/24 09:45 06/26/24 09:30 Range/Units Urine Color Light-yellow Yellow Urine Clarity Clear Clear Urine pH 6.0 5.0-9.0 Urine Specific Vaughn 1.015 1.001-1.035 Urine Protein Negative Negative Urine Ketones Negative Negative Urine Blood Negative Negative /uL Urine Nitrite Negative Negative Urine Bilirubin Negative Negative Urine Urobilinogen Normal Negative mg/dL Urine Leukocyte Esterase Negative Negative /uL Urine RBC 1 0 - 4 /hpf Urine Microscopic WBC 2 0-5 /HPF Urine Squamous Epithelial Cells Few <5 /hpf Urine Bacteria Few H None Seen /hpf Urine Glucose Normal Normal mg/dL White Blood Count 13.1 H 4.4-10.8 10^3/uL Red Blood Count 4.94 4.0-5.20 10^6/uL Hemoglobin 14.5 12.2-16.2 g/dL Hematocrit 42.0 36.0-46.0 % Mean Corpuscular Volume 85.1 80.0-100.0 fL Mean Corpuscular Hemoglobin 29.3 28.0-32.0 pg Mean Corpuscular Hemoglobin Concent 34.4 32.0-36.0 g/dL Red Cell Distribution Width 13.2 11.8-14.3 % Platelet Count 310 140-450 10^3/uL Mean Platelet Volume 8.8 6.9-10.8 fL Neutrophils (%) (Auto) 64.2 37.0-80.0 % Lymphocytes (%) (Auto) 25.6 10.0-50.0 % Monocytes (%) (Auto) 3.9 0.0-12.0 % Eosinophils (%) (Auto) 5.1 0.0-7.0 % Basophils (%) (Auto) 1.2 0.0-2.0 % Neutrophils # (Auto) 8.4 1.6-8.6 10 ^3/uL Lymphocytes # (Auto) 3.4 0.4-5.4 10 ^3/uL Monocytes # (Auto) 0.5 0-1.3 10 ^3/uL Eosinophils # (Auto) 0.7 0-0.8 10 ^3/uL Basophils # (Auto) 0.2 0-0.2 10 ^3/uL Nucleated Red Blood Cells 0.1 % Sodium Level 140 136-145 mmol/L Potassium Level 3.9 3.5-5.1 mmol/L Chloride Level 108 H 98-107 mmol/L Carbon Dioxide Level 25 20-31 mmol/L Anion Gap 7 5-15 Blood Urea Nitrogen 9 9-23 mg/dL Creatinine 1.07 H 0.550-1.02 mg/dL Glomerular Filtration Rate Calc 71 >90 mL/min BUN/Creatinine Ratio 8.4 L 10.0-20.0 Serum Glucose 119 H 74-106 mg/dL Calcium Level 10.0 8.7-10.4 mg/dL Lipase 41 12-53 U/L Current Medications Medications (Trade) Dose Ordered Sig/Kal Route Start Time Stop Time Status Last Admin Belladonna Alkaloids/ Phenobarbital ( Elixir) 10 ml ONCE ONCE PO 06/26/24 09:30 06/26/24 09:31 DC 06/26/24 09:35 Al Hydrox/Mg Hydrox/Simethicone (Maalox Plus) 30 ml ONCE ONCE PO 06/26/24 09:30 06/26/24 09:31 DC 06/26/24 09:34 Lidocaine HCl (Xylocaine 2% Viscous) 15 ml ONCE ONCE PO 06/26/24 09:30 06/26/24 09:31 DC 06/26/24 09:34 [place] [id number] Ph: [phone] DIAGNOSTIC IMAGING Diagnostic Imaging Report : [id number] Signed PATIENT: KIKA CRUZ ACCT: [id number] UNIT: [id number] : 1995 LOC: ER ROOM / BED: / AGE / SEX: 29 / F ADM STATUS: REG ER SERVICE 1156 ORDERING PHYSICIAN: TOYIN POLO MD PROCEDURE(s): ABPL - CT AB PEL WO CON-NO ORAL OR IV REASON: gastritis ORDER NUMBER(s): [id number], ACCESSION NUMBER(s): [id number] CT ABDOMEN AND PELVIS WITHOUT CONTRAST CLINICAL HISTORY: gastritis TECHNIQUE: Multiple contiguous axial images of the abdomen and pelvis without intravenous contrast. The images were reformatted degenerate coronal and sagittal reconstructions. All CT scans at this medical facility are performed using dose modulation techniques as appropriate to a performed exam including the following:Automated exposure control was utilized; adjustment of the MA and/or KV according to patient size; and use of iterative reconstruction technique. Radiation Dose Information: CT Dose: CTDI volume is 28 mGy. Dose-length product is 1644 mGy*cm Comparison: None FINDINGS: Evaluation of the abdomen and pelvis is limited without intravenous contrast. Gallbladder surgically absent. The liver, pancreas, kidneys, adrenal glands, and spleen appear within normal limits. There is no gross evidence of abdominal lymphadenopathy. There is no free fluid or free air. The stomach grossly appears unremarkable. The small and large bowel loops demonstrate normal caliber and appear within normal limits. A normal-appearing appendix is seen in the right lower quadrant abdomen.. The abdominal aorta and IVC appear within normal limits. The bladder appears unremarkable for the degree of distention. Pelvic organ appears within normal limits. There is no gross evidence of a pelvic mass. There is no free fluid collection. Lung bases are clear. There is no acute osseous abnormality. IMPRESSION: 1. There is no acute process in the abdomen and pelvis. HS:Y ATED BY: TOMAS BECKER MD DICTATED DATE/TIME: 06/26/241247 SIGNED BY: TOMAS BECKER MD SIGNED DATE/TIME: 06/26/241247 CC: Patient alert. Complaining of abdominal pain. Possible gastritis. Vitals stable. Blood pressure elevated. Was given clonidine. She is obese. Abdomen is soft nontender. Was given GI cocktail. No leg swelling. No shortness a breath. No chest pain. Reviewed her history. Continue monitoring. CT scan of the abdomen reviewed does not show any acute changes. Was given prescription of Protonix. Explained to the patient. Was told to follow up with her primary care physician. Was told to come back if there is any problem. Time of 1ST Reevaluation: 09:50 Reevaluation 1ST: Unchanged Time of 2ND Reevaluation: 14:36 Reevaluation 2ND: Improved Patient Education/Counseling: Diagnosis, Treatment Family Education/Counseling: No Family Present Departure 1 Departure Time of Disposition: 09:38 Impression: Primary Impression: Acute abdominal pain Additional Impression: Gastritis Qualified Codes: K29.00 - Acute gastritis without bleeding Disposition: HOME / SELF CARE / HOMELESS Condition: Good e-Prescriptions Pantoprazole Sodium Sesquihydr (Protonix) 40 Mg Tab 40 MG PO DAILY for 10 Days, #10 TAB Prov: TOYIN POLO MD 06/26/24 Discharged With: Self Critical Care Note Critical Care Time?: No Stability Stability form required: No Heart Score Heart Score: Heart Score Response (Comments) Value History N/A 0 EKG N/A 0 Age N/A 0 Risk Factors N/A 0 Troponin N/A 0 Total 0 I personally scribed for TOYIN POLO MD ([email or web address]) on 06/26/24 at 09:35. Electronically submitted by Roselia Mccormack ([email or web address]). I personally scribed for TOYIN POLO MD ([email or web address]) on 06/26/24 at 14:10. Electronically submitted by Roselia Mccormack ([email or web address]). TOYIN POLO MD Jun 26, 2024 09:35
[2024-06-26 09:41] LABS: Basophils # (auto) 0.2 10 ^3/uL (0-0.2); Basophils % (auto) 1.2 % (0.0-2.0); Eosinophils # (auto) 0.7 10 ^3/uL (0-0.8); Eosinophils % (auto) 5.1 % (0.0-7.0); Hemoglobin 14.5 g/dL (12.2-16.2); Lymphocytes # (auto) 3.4 10 ^3/uL (0.4-5.4); Lymphocytes % (auto) 25.6 % (10.0-50.0); Mean Corpuscular Hemoglobin 29.3 pg (28.0-32.0); Mean Corpuscular Hgb Conc. 34.4 g/dL (32.0-36.0); Mean Corpuscular Volume 85.1 fL (80.0-100.0); Monocytes # (auto) 0.5 10 ^3/uL (0-1.3); Monocytes % (auto) 3.9 % (0.0-12.0); Neutrophils # (auto) 8.4 10 ^3/uL (1.6-8.6); Neutrophils % (auto) 64.2 % (37.0-80.0); Nucleated Red Blood Cells % 0.1 %; Platelet Count (auto) 310 10^3/uL (140-450); Red Blood Cells 4.94 10^6/uL (4.0-5.20); Red Cell Distribution Width 13.2 % (11.8-14.3); White Blood Cell 13.1 10^3/uL (4.4-10.8)
[2024-06-26 09:45] VITALS: PULSE 87; RESP 16; O2SAT 95
[2024-06-26 09:50] LABS: Potassium 3.9 mmol/L (3.5-5.1); Sodium 140 mmol/L (136-145)
[2024-06-26 09:51] LABS: Anion Gap 7 (5-15); Carbon Dioxide 25 mmol/L (20-31)
[2024-06-26 09:57] LABS: BUN/Creatinine Ratio 8.4 (10.0-20.0); Blood Urea Nitrogen 9 mg/dL (9-23)
[2024-06-26 10:18] LABS: Chloride 108 mmol/L (98-107); Glucose 119 mg/dL (74-106)
[2024-06-26 11:20] LABS: Lipase 41 U/L (12-53)
[2024-06-26 11:47] LABS: Urine Bacteria FEW /hpf (None Seen); Urine Blood Negative /uL (Negative); Urine Clarity Clear (Clear); Urine Color Light-Yellow (Yellow); Urine Protein, UAD Negative (Negative); Urine Specific Gravity 1.015 (1.001-1.035); Urine Squamous Epithelial Cell FEW /hpf (<5); Urine Urobilinogen Normal (Negative); Urine WBC 2 /HPF (0-5)
--- NOTE | 2024-06-26 12:50 | DVH ---
CT ABDOMEN AND PELVIS WITHOUT CONTRAST CLINICAL HISTORY: gastritis TECHNIQUE: Multiple contiguous axial images of the abdomen and pelvis without intravenous contrast. T he images were reformatted degenerate coronal and sagittal reconstructions. All CT scans at this medical facility are performed using dose modulation techniques as appropriate t o a performed exam including the following:Automated exposure control was utilized; adjustment of the MA and/or KV according to patient size; and use of iterative reconstruction technique. Radiation Dose Information: CT Dose: CTDI volume is 28 mGy. Dose-length product is 1644 mGy*cm Comparison: None FINDINGS: Evaluation of the abdomen and pelvis is limited without intravenous contrast. Gallbladder surgically absent. The liver, pancreas, kidneys, adrenal glands, and spleen appear wit hin normal limits. There is no gross evidence of abdominal lymphadenopathy. There is no free fluid or free air. The stomach grossly appears unremarkable. The small and large bowel loops demonstrate normal caliber and appear within normal limits. A normal-appearing appendix is seen in the right lower quadrant abd omen.. The abdominal aorta and IVC appear within normal limits. The bladder appears unremarkable for the degree of distention. Pelvic organ appears within normal dill its. There is no gross evidence of a pelvic mass. There is no free fluid collection. Lung bases are clear. There is no acute osseous abnormality. IMPRESSION: 1. There is no acute process in the abdomen and pelvis. HS:Y
[2024-06-26] MEDS ORDERED: PANT40TA2 PO (14:35)
[2024-06-26 15:10] VITALS: BP 143/89; PULSE 70; RESP 16; TEMP 97.9; O2SAT 97
== END 2024-06-26 15:13 | disposition home or self-care (01) ==
LOC: ER 09:14
DX: K29.70 Gastritis, unspecified, without bleeding (principal); J45.909 Unspecified asthma, uncomplicated; Z90.49 Acquired absence of other specified parts of digestive tract; Z79.1 Long term (current) use of non-steroidal anti-inflammatories (NSAID); Z79.51 Long term (current) use of inhaled steroids; Z79.52 Long term (current) use of systemic steroids; Z79.899 Other long term (current) drug therapy
CPT/HCPCS: 36415; 74176; 80048; 81001; 83690; 85025

== ENCOUNTER 2024-09-08 22:45 | Emergency (ER) | payer MEDICAID ==
[~2024-09-08] VITALS: Ht 160 cm; Wt 136.1 kg
[2024-09-08 22:45] VITALS: TEMP 98
[~2024-09-08 22:45] MED LIST changes: +PANT40TA2 PO
[2024-09-08 23:25] LABS: Basophils # (auto) 0.1 10 ^3/uL (0-0.2); Basophils % (auto) 1.1 % (0.0-2.0); Eosinophils # (auto) 0.3 10 ^3/uL (0-0.8); Eosinophils % (auto) 2.5 % (0.0-7.0); Lymphocytes # (auto) 3.4 10 ^3/uL (0.4-5.4); Lymphocytes % (auto) 26.2 % (10.0-50.0); Mean Corpuscular Hgb Conc. 34.1 g/dL (32.0-36.0); Mean Corpuscular Volume 85.2 fL (80.0-100.0); Monocytes # (auto) 0.6 10 ^3/uL (0-1.3); Monocytes % (auto) 4.8 % (0.0-12.0); Neutrophils # (auto) 8.5 10 ^3/uL (1.6-8.6); Neutrophils % (auto) 65.4 % (37.0-80.0); Nucleated Red Blood Cells % 0.1 %; Platelet Count (auto) 301 10^3/uL (140-450); Red Blood Cells 5.17 10^6/uL (4.0-5.20); Red Cell Distribution Width 13.4 % (11.8-14.3); White Blood Cell 12.9 10^3/uL (4.4-10.8)
--- NOTE | 2024-09-08 23:31 | ED.PDOC ---
History of Present Illness HPI Comments 29 y/o morbidly obese F presents with c/o nonradiating, epigastric abdominal pain, with associated nausea and vomiting, for 1 week. Patient reports on pain waxing and waning in severity, with temporary, mild improvement after vomiting. She states on feeling similar to when she had gastritis in the past, which improved upon being treated with a GI cocktails through previous ED visits. Patient also complains of oily, soft stool productions, lately. Endorses further on being started on a new blood pressure medication, that she is unable to recall at this time. Denies any recent travel, injuries, spoiled food intake, or substance use. Denies any bloody or bilious vomitus, diarrhea, urinary symptoms, fever, chills, or further associated symptoms. Chief Complaint: Abdominal Pain Time Seen by MD: 22:50 Primary Care Provider: UNKNOWN Reviewed Notes: Nurses Notes, Medications, Allergies Allergies: Coded Allergies: NO KNOWN ALLERGIES (Unverified , 02/20/15) Home Meds Active Scripts Pantoprazole Sodium Sesquihydr (Protonix) 40 Mg Tab, 40 MG PO DAILY for 10 Days, #10 TAB Prov:TOYIN POLO MD 06/26/24 Albuterol Sulfate (VENTOLIN MDI) 90 Mcg Ih, 2 PUFF IN Q4HPRN, #1 INH 0 Refills Prov:NEIL BENSON 09/27/23 Azithromycin (Azithromycin) 250 Mg Tab, 250 MG PO DAILY MDD 500 for 5 Days, #6 TAB 0 Refills 2 TABLETS ORALLY ON DAY ONE, THEN 1 TABLET ORALLY DAILY FOR 4 DAYS Prov:NEIL BENSON 09/27/23 Prednisone (Prednisone) 20 Mg Tab, 20 MG PO BID for 5 Days, #10 TAB 0 Refills Prov:NEIL BENSON 09/27/23 Prednisone (Prednisone) 20 Mg Tab, 60 MG PO DAILY, #15 TAB Prov:RUMA ABRAHAM MD 08/20/23 Methocarbamol (Methocarbamol) 750 Mg Tab, 750 MG PO QHSP PRN, #20 TAB Prov:AJ TRAMMELL 06/07/22 Ibuprofen (Ibuprofen) 800 Mg Tab, 1 TAB PO TID, #30 TAB Prov:AJ TRAMMELL 06/07/22 Prednisone (Prednisone) 20 Mg Tab, 20 MG PO BID, #14 MG Prov:MARLY MARTINEZ MD 08/27/21 Azithromycin (Azithromycin) 500 Mg Tab, 1 TAB PO DAILY for 7 Days, #7 TAB Prov:MARLY MARTINEZ MD 08/27/21 Reported Medications Omeprazole (Gnp Omeprazole) 20 Mg Tab, 20 MG PO, TAB 11/16/21 Albuterol Sulfate (Albuterol Sulfate Hfa) 108 Mcg/Act Aer, INH 08/25/21 Fluticasone Propionate (FLOVENT HFA 220Mcg INH) 220 Mcg Ih, 2 PUFF PO BID 08/25/21 Vitamins W/ Ferrous S (CLINICAL NUTRIENTS PRENAT) Tab, 1 PO DAILY, TAB 08/25/21 Information Source: Patient Mode of Arrival: Ambulatory Severity: Moderate Timing: Weeks Duration: Since onset Prehospital treatment: None Past Medical History PAST MEDICAL HISTORY: Anxiety, Asthma, Gallstones Past Medical History (Other): gastritis Surgical History: Cholecystectomy DOOR FRAME ASSEMBLER MACHINE History: No Pertinent DOOR FRAME ASSEMBLER MACHINE History Family History Family History: Unknown Social History Smoker: Non-Smoker Alcohol: Denies ETOH Use Drugs: Marijuana Lives In: Home All Other Systems: Reviewed and Negative Physical Exam General Appearance: Moderate Distress, Obese HEENT: Normal ENT Inspection, Pharynx Normal, TMs Normal Neck: Full Range of Motion, Non-Tender, Normal, Normal Inspection Respiratory: Chest Non-Tender, Lungs Clear, No Accessory Muscle Use, No Respiratory Distress, Normal Breath Sounds Cardiovascular: No Edema, No JVD, No Murmur, No Gallop, Normal Peripheral Pulses, Regular Rate/Rhythm Breast Exam: Deferred Gastrointestinal: Epigastric (tenderness ), No Organomegaly, No Pulsatile Mass, Normal Bowel Sounds, Soft, Tenderness (epigastric ) Genitalia: Deferred Pelvic: Deferred Rectal: Deferred Extremities: No calf tenderness, Normal capillary refill, Normal inspection, Normal range of motion, Non-tender, No pedal edema Musculoskeletal : Apperance: Normal Neurologic: Alert, interventional neuroradiologist II-XII nml as Tested, No Motor Deficits, Normal Affect, Normal Mood, No Sensory Deficits Cerebellar Function: Normal Reflexes: Normal Skin: Dry, Normal Color, Warm Lymphatic: No Adenopathy Was a procedure done? Was a procedure done?: No Differential Dx Considerations may include: gastritis, gastroenteritis, GERD, PUD, cholelithiasis, UTI, among others X-Ray, Labs, Meds, VS Vital Signs Date Time Temp Pulse Resp B/P (MAP) Pulse Ox O2 Delivery O2 Flow Rate FiO2 09/08/24 22:45 98.0 78 18 173/103 (126) 100 98.0 Lab Test 09/08/24 23:05 Range/Units White Blood Count 12.9 H 4.4-10.8 10^3/uL Red Blood Count 5.17 4.0-5.20 10^6/uL Hemoglobin 15.0 12.2-16.2 g/dL Hematocrit 44.0 36.0-46.0 % Mean Corpuscular Volume 85.2 80.0-100.0 fL Mean Corpuscular Hemoglobin 29.0 28.0-32.0 pg Mean Corpuscular Hemoglobin Concent 34.1 32.0-36.0 g/dL Red Cell Distribution Width 13.4 11.8-14.3 % Platelet Count 301 140-450 10^3/uL Mean Platelet Volume 8.6 6.9-10.8 fL Neutrophils (%) (Auto) 65.4 37.0-80.0 % Lymphocytes (%) (Auto) 26.2 10.0-50.0 % Monocytes (%) (Auto) 4.8 0.0-12.0 % Eosinophils (%) (Auto) 2.5 0.0-7.0 % Basophils (%) (Auto) 1.1 0.0-2.0 % Neutrophils # (Auto) 8.5 1.6-8.6 10 ^3/uL Lymphocytes # (Auto) 3.4 0.4-5.4 10 ^3/uL Monocytes # (Auto) 0.6 0-1.3 10 ^3/uL Eosinophils # (Auto) 0.3 0-0.8 10 ^3/uL Basophils # (Auto) 0.1 0-0.2 10 ^3/uL Nucleated Red Blood Cells 0.1 % Sodium Level 140 136-145 mmol/L Potassium Level 3.8 3.5-5.1 mmol/L Chloride Level 104 98-107 mmol/L Carbon Dioxide Level 26 20-31 mmol/L Anion Gap 10 5-15 Blood Urea Nitrogen 11 9-23 mg/dL Creatinine 1.07 H 0.550-1.02 mg/dL Glomerular Filtration Rate Calc 71 >90 mL/min BUN/Creatinine Ratio 10.3 10.0-20.0 Serum Glucose 104 74-106 mg/dL Calcium Level 10.0 8.7-10.4 mg/dL Total Bilirubin 1.0 0.2-1.0 mg/dL Aspartate Amino Transferase (AST) 13 13-40 U/L Alanine Aminotransferase (ALT) 26 7-40 U/L Alkaline Phosphatase 94 46-116 U/L Total Protein 7.8 5.7-8.2 g/dL Albumin 4.9 H 3.2-4.8 g/dL Lipase 50 12-53 U/L Current Medications Medications (Trade) Dose Ordered Sig/Kal Route Start Time Stop Time Status Last Admin Lidocaine HCl (Xylocaine 2% Viscous) 5 ml ONCE ONCE MT 09/08/24 23:00 09/08/24 23:01 DC 09/09/24 00:31 Al Hydrox/Mg Hydrox/Simethicone (Maalox Plus) 30 ml ONCE ONCE PO 09/08/24 23:00 09/08/24 23:01 DC 09/09/24 00:31 Ondansetron HCl (Zofran Po) 4 mg ONCE ONCE PO 09/08/24 23:00 09/08/24 23:01 DC 09/09/24 00:32 Sodium Chloride 1,000 ml @ 1,000 mls/hr Q1H ONCE IV 09/09/24 01:15 09/09/24 02:14 09/09/24 01:28 Famotidine 40 mg/ Sodium Chloride 104 ml @ 416 mls/hr ONCE ONCE IV 09/09/24 01:15 09/09/24 01:29 DC 09/09/24 01:28 X-Ray, Labs, Meds, VS Comment Imaging: X-rays and CT scans were reviewed and interpreted by this provider, imaging shows no fractures and no pathological disease. Pending radiology review. Laboratory: Labs reviewed and interpreted by this provider. No significant abnormalities noted. Patient has prior medical visits reviewed. Med reconciliation performed Vital signs reviewed Time of 1ST Reevaluation: 23:10 Reevaluation 1ST: Improved (Patient reports good relief after GI cocktail) Patient Education/Counseling: Diagnosis, Treatment, Need For Follow Up (Follow up in the emergency department in the next 24-48 hours if symptoms worsen. It was advised to follow up with your primary care doctor in the next 3-4 days for further evaluation.) Family Education/Counseling: No Family Present Departure 1 Departure Time of Disposition: 01:34 Impression: Primary Impression: Gastritis Qualified Codes: K29.00 - Acute gastritis without bleeding Disposition: 01 HOME / SELF CARE / HOMELESS Condition: Fair e-Prescriptions Pantoprazole Sodium Sesquihydr (Protonix) 40 Mg Tab 40 MG PO DAILY, #30 TAB Prov: JAZZY MARTÍNEZ 09/09/24 Discharged With: Self Critical Care Note Critical Care Time?: No Stability Stability form required: No Heart Score Heart Score: Heart Score Response (Comments) Value History N/A 0 EKG N/A 0 Age N/A 0 Risk Factors N/A 0 Troponin N/A 0 Total 0 I personally scribed for JAZZY MARTÍNEZ ([email or web address]) on 09/08/24 at 23:31. Electronically submitted by David Brock ([email or web address]). JAZZY MARTÍNEZ September 08, 2024 23:31
[2024-09-08 23:40] LABS: Alanine Aminotransferase 26 U/L (7-40); Alkaline Phosphatase 94 U/L (46-116); Anion Gap 10 (5-15); BUN/Creatinine Ratio 10.3 (10.0-20.0); Blood Urea Nitrogen 11 mg/dL (9-23); Carbon Dioxide 26 mmol/L (20-31); Chloride 104 mmol/L (98-107); Glucose 104 mg/dL (74-106); Lipase 50 U/L (12-53); Potassium 3.8 mmol/L (3.5-5.1); Sodium 140 mmol/L (136-145); Total Protein 7.8 g/dL (5.7-8.2)
[2024-09-08 23:58] LABS: Albumin 4.9 g/dL (3.2-4.8); Aspartate Aminotransferase 13 U/L (13-40)
[2024-09-09] MEDS: MAALOX PLUS or MAALOX 30 ML PO ONE (00:31)
[2024-09-09] MEDS: LIDOCAINE VISCOUS 2% 15ML UD MT ONE (00:31)
[2024-09-09] MEDS: ONDANSETRON ODT 4 MG TAB PO ONE (00:32)
[2024-09-09] MEDS: FAMOTIDINE INJECTION 40 MG in SODIUM CHL 0.9% 100 ML IV ONE (01:28)
[2024-09-09] MEDS: SODIUM CHLORIDE 0.9% 1,000 ML IV ONE (01:28)
[2024-09-09] MEDS: FAMOTIDINE (10MG/ML) 2ML VL IV ONE (01:30)
[2024-09-09] MEDS ORDERED: PANT40TA2 PO (01:35)
[2024-09-09] MEDS: ONDANSETRON HCL 4 MG/2 ML VIAL IV ONE (02:18)
[2024-09-09 02:29] VITALS: BP 115/92
[2024-09-09 02:30] VITALS: PULSE 75; RESP 14; O2SAT 96
== END 2024-09-09 02:32 | disposition home or self-care (01) ==
LOC: ER 22:49
DX: K29.70 Gastritis, unspecified, without bleeding (principal); F12.90 Cannabis use, unspecified, uncomplicated; F41.9 Anxiety disorder, unspecified; E66.01 Morbid (severe) obesity due to excess calories; J45.909 Unspecified asthma, uncomplicated; Z90.49 Acquired absence of other specified parts of digestive tract; Z79.1 Long term (current) use of non-steroidal anti-inflammatories (NSAID); K29.00 Acute gastritis without bleeding; Z79.51 Long term (current) use of inhaled steroids; Z79.52 Long term (current) use of systemic steroids; Z79.899 Other long term (current) drug therapy
CPT/HCPCS: 36415; 80053; 83690; 85025; 96365; 99284; J2405; J3490; Q0162